=== PATIENT | female | born 1975 | race Caucasian/White ===

== ENCOUNTER 2016-10-25 23:29 | Emergency (ER) | payer OTHER ==
[~2016-10-25] VITALS: Ht 137.2 cm; Wt 79.1 kg
[2016-10-26 00:28] VITALS: BP 135/81
[2016-10-26] MEDS ORDERED: CYCLOBENZAPRINE HCL 10 MG TABLET PO ONE (00:30)
[2016-10-26] MEDS ORDERED: PredniSONE 20 MG TABLET PO ONE (00:30)
[2016-10-26] MEDS ORDERED: HYDROCODONE/ACETAMINOPHEN 5-325 MG TABLET PO ONE (00:30)
== END 2016-10-26 00:43 | disposition home or self-care (01) ==
LOC: EMS 23:30
DX: S46.912A Strain of unspecified muscle, fascia and tendon at shoulder and upper arm level, left arm, initial encounter (principal); X58.XXXA Exposure to other specified factors, initial encounter; Y93.89 Activity, other specified; Y92.89 Other specified places as the place of occurrence of the external cause; Y99.8 Other external cause status
CPT/HCPCS: 99284; J7512

== ENCOUNTER 2017-05-04 23:18 | Emergency (ER) | payer OTHER ==
[~2017-05-04] VITALS: Ht 167.6 cm; Wt 81.8 kg
[2017-05-04 23:54] LABS: APPEARANCE,URINE CLEAR (CLEAR); GLUCOSE, URINE (UA) NEGATIVE (NEGATIVE); KETONES,URINE NEGATIVE (NEGATIVE); LEUKOCYTE ESTERASE ,URINE NEGATIVE (NEGATIVE); OCCULT BLOOD,URINE NEGATIVE (NEGATIVE); PROTEIN,URINE NEGATIVE (NEGATIVE)
[2017-05-04 23:55] LABS: ADD UA MICROSCOPIC NO
[2017-05-05] MEDS ORDERED: KETOROLAC TROMETHAMINE 30 MG/ML VIAL IM ONE
[2017-05-05] MEDS ORDERED: METHOCARBAMOL 500 MG TABLET PO ONE
[2017-05-05] MEDS ORDERED: ALPRAZolam 0.25 MG TABLET PO ONE (00:15)
[2017-05-05] MEDS ORDERED: SULFAMETHOX/TRIMETH DS 800-160 MG/TABLET PO ONE (00:15)
[2017-05-05 00:39] VITALS: BP 119/68
== END 2017-05-05 00:45 | disposition home or self-care (01) ==
LOC: EMS 23:20
DX: R07.81 Pleurodynia (principal)
CPT/HCPCS: 71020; 81003; 81025; 93005; 96372; 99285; J1885